=== PATIENT | male | born 1935 | race Caucasian/White ===

== ENCOUNTER → 2020-11-28 09:06 | Outpatient (REF) | payer MEDICARE, SELFPAY | LOC: ANHLAB 09:06 | PROVIDERS: Visit Provider Nurse Practitioner | DX: C44.319 Basal cell carcinoma of skin of other parts of face (principal) | CPT/HCPCS: 88305 ==

== ENCOUNTER 2022-06-12 11:04 | Outpatient (CLI) | payer MEDICARE, SELFPAY ==
--- NOTE | 2022-06-12 11:20 | ECG_ITS ---
Measurements Intervals [place] Rate: 62 P: 54 WV: 216 QRS: 57 QRSD: 111 T: 41 QT: 399 QTc: 407 Interpretive Statements SINUS RHYTHM WITH FIRST DEGREE AV BLOCK INCOMPLETE RIGHT BUNDLE BRANCH BLOCK BORDERLINE R WAVE PROGRESSION, ANTERIOR LEADS BORDERLINE T WAVE ABNORMALITY- ANTEROLATERAL LEADS BORDERLINE ECG BASELINE WANDER- III, AVF, V3-V4 NO PREVIOUS ECG AVAILABLE FOR COMPARISON Electronically Signed On 06-12-2022 12:41:37 [employer]STAIN[employer] COMMUNICATOR by Parish Howell D.O.
== END 2022-06-12 11:05 | disposition home or self-care (01) ==
DX: Z01.818 Encounter for other preprocedural examination (principal)
CPT/HCPCS: 93005